=== PATIENT | male | born 1945 | race Two or more races ===

== ENCOUNTER → 2017-01-03 | Outpatient (CLI) | payer OTHER ==
[2016-05-24 14:43] VITALS: BP 116/68
[~2017-01-03] MED LIST: AMOX1TAB11 PO; ASPI-630 PO; CHOL10003 PO; CHOL200044 PO; EZET10TA18 PO; FISH1CAP PO; GLIP5TAB10 PO; INSU100C SQ; INSU100V13 SQ; ISOS30TA4 PO; LISI10TA2 PO; MELO7.5T29 PO; METF-620 PO; METF500T4 PO; METO25TA4 PO; METO25TA9 PO; NITR0.4T22 SL; PRED20TA PO; REGADENOSON 0.4 MG/5 ML DISP.SYRIN. IV ONE; TAMS0.4C2 PO; TAMS0.4C97 PO
--- NOTE | 2017-01-04 17:50 | RAD ---
APPROVED REPORT Test Type: Pharmacological Stress Nurse/Tech: Yeny Villarreal R.N. Test Indications: c/p Cardiac History: HTN, CABG Medications: See Electronic Medical Record Medical History: See Electronic Medical Record Resting ECG: SR w, BBB Resting Heart Rate: 61 bpm Resting Blood Pressure: 95/55mmHg Pretest Chest Pain: Typical angina Nurse/Tech Notes S1S2, lungs CTA, pt states he is currently having some chest pain in the 'medium' range Consent: The procedure was explained to the patient in lay terms. Informed consent was witnessed. Darian eout was entered into [employer]. History and Stress Test performed by RT Sada (R) (N) Pharm. Details Pharmacologic stress testing was performed using 0.4mg per 5ml of regadenoson given intravenously ove r 7-10 seconds. Stress Symptoms dyspnea that resolved by the end of recovery time, chest discomfort did get a little higher but retur chaitanya to baseline level by the end of recovery period POST EXERCISE Reason for Termination: Infusion complete Max HR: 89 bpm Max Blood Pressure: 102/52mmHg Blood Pressure response to exercise: pt's b/p was low prior to and through out Heart Rate response to exercise: wnl Chest Pain: Yes. see above notes Arrhythmia: No. ST Change: No. Imaging Protocol IMAGE PROTOCOL: Rest Tc-99m/stress Tc-99m 1 day Rest: Stress: Viability: Radiopharm.Tc99m NuhtpcospZq89p Sestamibi Tuse25eNd 33mCi Img Date 01/03/2017 01/03/2017 Rest Admin Site:IV - Right AntecubitalAdministrator:SOCO Casarez, ARRT (R)(N) Stress Admin Site: IV - Right AntecubitalAdministrator: RT Sada (R)(N) STRESS DATA End Diast. Vol.80.0mlAv. Heart Rate68.0bpm End Syst. Vol.27.0mlCO Index BSA0.0L/min Myocardial Rwcn896.0gEject. Wtddaswk05.0% Stress Rates Pk. Fill Rate2.63EDV/secLVtime Pk. Fill 270.25msec Pk. Empty Rate3.78ESV/secLVtime Pk. Bpnwv400.21msec / Pk. Fill1.19EDV/sec Stress Scores Regional WT1.00Summed WT6.00 Regional WM0.00Summed WM7.00 LV Perf. Quant 17 Seg. SSS0.00 17 Seg. SRS0.00 17 Seg. SDS0.00 Stress Defect Extent (% LAD)0.00Rest Defect Extent (% LAD)0.00Rev. Defect Extent (% LAD)0.00 Stress Defect Extent (% LCX) 0.00Rest Defect Extent (% LCX)0.00Rev. Defect Extent (% LCX)0.00 Stress Defect Extent (% RCA)0.00Rest Defect Extent (% RCA)0.00Rev. Defect Extent (% RCA)0.00 Stress Defect Extent (% JOE)0.00Rest Defect Extent (% JOE)0.00Rev. Defect Extent (% JOE)0.00 Conclusion 1. the baseline EKG showed RBBB. 2. No perfusion defects seen. 3. There is a mild transient ischemic dilatation. This may represent a balanced circulation and tripl e vessel disease. 4. Normal wall motion and wall thickening with an ejection fraction of 66%. 5. Scan probably represents a moderate risk for future cardiac events.
== END | disposition home or self-care (01) ==
LOC: NM 07:55
PROVIDERS: ATTEND Specialist
DX: R07.9 Chest pain, unspecified (principal); I25.10 Atherosclerotic heart disease of native coronary artery without angina pectoris
CPT/HCPCS: 78452; 93017; 96374; 96375; 96376; A9500; J2785